=== PATIENT | male | born 1990 | race American Indian/Alaskan Native ===

== ENCOUNTER 2019-10-23 23:36 | Emergency (ER) | payer SELFPAY ==
[2019-10-24 00:41] VITALS: BP 137/65
--- NOTE | 2019-10-24 01:24 | XRay Report ---
LEFT RIBS PLUS CHEST 5 VIEWS INDICATION / CLINICAL INFORMATION: Left rib pain after fall. COMPARISON: None available. FINDINGS: BONES and JOINT(S): No acute fracture or subluxation. No significant arthritis. SOFT TISSUES/CHEST: No significant abnormality. ADDITIONAL FINDINGS: None. IMPRESSION: No significant abnormality of the left ribs or chest. Signer Name: Jone Pugh MD Signed: 10/24/2019 1:20 AM Workstation Name: [email or web address]
[2019-10-24] MEDS ORDERED: IBUPROFEN 600 MG TAB PO ONE (01:33)
[2019-10-24] MEDS ORDERED: ACETAMINOPHEN 500 MG TAB PO ONE (01:33)
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
== END 2019-10-24 03:00 | disposition home or self-care (01) ==
LOC: ED 23:36
DX: S29.011A Strain of muscle and tendon of front wall of thorax, initial encounter (principal); R07.81 Pleurodynia; I10 Essential (primary) hypertension; J45.909 Unspecified asthma, uncomplicated; F17.200 Nicotine dependence, unspecified, uncomplicated; F12.10 Cannabis abuse, uncomplicated; Z79.1 Long term (current) use of non-steroidal anti-inflammatories (NSAID); Z79.899 Other long term (current) drug therapy; V49.69XA Unspecified car occupant injured in collision with other motor vehicles in traffic accident, initial encounter; Y93.89 Activity, other specified; Y92.89 Other specified places as the place of occurrence of the external cause; Y99.8 Other external cause status